=== PATIENT | female | born 1955 | race Caucasian/White ===

== ENCOUNTER → 2017-02-22 | Outpatient (CLI) | payer MEDICARE, MEDICAID ==
[2017-02-22 13:26] LABS: ASPARTATE AMINO TRANSFERASE 27 U/L (15-37); BLOOD UREA NITROGEN 8 mg/dL (7-18)
== END | disposition home or self-care (01) ==
LOC: CFH 08:30
PROVIDERS: ATTEND Internal Medicine Pulmonary Disease
DX: J98.11 Atelectasis (principal); E11.21 Type 2 diabetes mellitus with diabetic nephropathy; E78.2 Mixed hyperlipidemia
CPT/HCPCS: 36415; 71250; 80053; 80061; 82565

== ENCOUNTER → 2017-08-12 | Outpatient (CLI) | payer MEDICARE, MEDICAID ==
[2017-08-12 12:52] LABS: ASPARTATE AMINO TRANSFERASE 28 U/L (15-37); BLOOD UREA NITROGEN 6 mg/dL (7-18)
== END | disposition home or self-care (01) ==
LOC: LAB 10:04
PROVIDERS: ATTEND Internal Medicine Cardiovascular Disease
DX: I12.9 Hypertensive chronic kidney disease with stage 1 through stage 4 chronic kidney disease, or unspecified chronic kidney disease (principal); E11.21 Type 2 diabetes mellitus with diabetic nephropathy; I42.9 Cardiomyopathy, unspecified
CPT/HCPCS: 36415; 80053; 80061

== ENCOUNTER → 2017-10-04 | Outpatient (CLI) | payer MEDICARE, MEDICAID | END | disposition home or self-care (01) | LOC: CVU 08:09 | PROVIDERS: ATTEND Internal Medicine | DX: E11.51 Type 2 diabetes mellitus with diabetic peripheral angiopathy without gangrene (principal); E78.2 Mixed hyperlipidemia; M79.604 Pain in right leg; Z87.891 Personal history of nicotine dependence; Z85.828 Personal history of other malignant neoplasm of skin | CPT/HCPCS: 93922 ==

== ENCOUNTER 2019-04-18 14:45 | Day surgery (SDC) | payer MEDICAID, MEDICARE ==
[~2019-04-18] VITALS: Ht 154.9 cm; Wt 93.5 kg
[2019-04-18 15:12] VITALS: BP 114/77
== END 2019-04-18 23:29 | disposition hospice, home (50) ==
LOC: OR 14:45 → 4NOR 19:55 → OR 23:29
PROVIDERS: ATTEND Plastic Surgery
DX: C44.311 Basal cell carcinoma of skin of nose (principal); I11.0 Hypertensive heart disease with heart failure; I50.9 Heart failure, unspecified; J44.9 Chronic obstructive pulmonary disease, unspecified; E11.9 Type 2 diabetes mellitus without complications; K21.9 Gastro-esophageal reflux disease without esophagitis; Z79.84 Long term (current) use of oral hypoglycemic drugs
CPT/HCPCS: 15004; 15260; 36415; 80053; 93005; 94640; J0171; J0330; J0690; J1100; J2250; J2370; J2405; J2704; J2710; J3010; J3490; J7120; G0378

== ENCOUNTER 2020-04-03 12:12 | Inpatient (IN) | payer MEDICARE, MEDICAID ==
[~2020-04-03] VITALS: Ht 154.9 cm; Wt 96.1 kg
[~2020-04-03 12:12] MED LIST: COREG PO; LOVASTATIN PO; METFORMIN PO; OMEPRAZOLE PO; VITAMIN D PO; ZETIA PO; [UNRECOGNIZED DRUG - OTHER] PO
--- NOTE | 2020-04-03 12:49 | NUR ---
Assumed care patient. C/O SOB and cough x several days. Hx COPD. Scattered rhonchi thoughout. Bilateral periorbital edema. Placed on NIBP, pulse ox and front desk monitor. IV started and labs drawn. Will continue to monitor.
[2020-04-03 12:52] LABS: BASOPHILS # (AUTO) 0.01 x10^3/uL (0-0.1); BASOPHILS % (AUTO) 0 % (0-1); EOSINOPHILS % (AUTO) 0 % (1-7); LYMPHOCYTES # (AUTO) 1.35 x10^3/uL (1-3.4); LYMPHOCYTES % (AUTO) 12 % (22-44); MD NO; MEAN CORPUSCULAR HGB CONC 32.7 g/dL (32.4-35.8); MEAN PLATELET VOLUME 7.6 fL (7.4-10.4); MONOCYTES # (AUTO) 0.21 x10^3/uL (0.2-0.8); MONOCYTES % (AUTO) 2 % (2-9); NEUTROPHILS # (AUTO) 9.49 x10^3/uL (1.8-6.8); NEUTROPHILS % (AUTO) 86 % (42-75); PLATELET COUNT 249 x10^3/uL (130-400); RED BLOOD COUNT 4.72 x10^6/uL (3.82-5.3); RED CELL DISTRIBUTION WIDTH 16.7 % (9.6-15.2)
[2020-04-03 13:02] LABS: ALBUMIN 3.2 g/dL (3.4-5.0); ANION GAP 5 mmol/L (5-15); CALCIUM 8.1 mg/dL (8.5-10.1); CHLORIDE 107 mmol/L (98-107)
[2020-04-03 13:08] LABS: ALANINE AMINOTRANSFERASE 30 U/L (12-78); ALKALINE PHOSPHATASE 84 U/L (45-117); BILIRUBIN,TOTAL 0.7 mg/dL (0.2-1.0); CREATININE 1.45 mg/dL (0.55-1.02); TOTAL PROTEIN 7.1 g/dL (6.4-8.2); TROPONIN I 0.042 ng/mL (0.000-0.045)
[2020-04-03] MEDS ORDERED: OMEP-110 PO (13:26)
[2020-04-03] MEDS ORDERED: CHOL10003 PO (13:26)
[2020-04-03] MEDS ORDERED: METF500T17 PO (13:26)
[2020-04-03] MEDS ORDERED: EZET10TA70 PO (13:26)
[2020-04-03] MEDS ORDERED: LOVA40TA2 PO (13:26)
[2020-04-03] MEDS ORDERED: CARV25TA12 PO (13:26)
[2020-04-03] MEDS ORDERED: SPIR25TA5 PO (13:31)
--- NOTE | 2020-04-03 13:34 | NUR ---
Resting in gurney. No needs. Family member at bedside. VSS.
[2020-04-03] MEDS ORDERED: FUROSEMIDE 40 MG/4 ML IV ONE (14:30)
--- NOTE | 2020-04-03 14:43 | NUR ---
Report received from GAUTAM Cruz. Plan of care discussed
[2020-04-03] MEDS ORDERED: SODIUM CHLORIDE FLUSH 10ML SYR IVF PRN (15:00)
[2020-04-03] MEDS ORDERED: FUROSEMIDE 40 MG/4 ML ONE (15:09)
--- NOTE | 2020-04-03 15:25 | NUR ---
Patient medicated per emar, tolerated well
--- NOTE | 2020-04-03 15:49 | NUR ---
Attempted to call report x1
--- NOTE | 2020-04-03 15:56 | NUR ---
Report given to GAUTAM Barillas. Plan of care discussed
[2020-04-03 16:52] VITALS: BP 115/83
[2020-04-03] MEDS ORDERED: AMLO5TAB10 PO (17:07)
[2020-04-03] MEDS ORDERED: SITA100T PO (17:07)
[2020-04-03] MEDS ORDERED: ASPI-515 PO (17:07)
[2020-04-03] MEDS ORDERED: POTA10TA12 PO (17:15)
[2020-04-03] MEDS ORDERED: INSULIN LISPRO 100 UNITS/ML, PEN SQ-INSULIN SCH (18:00)
[2020-04-03] MEDS ORDERED: MELATONIN 5 MG TABLET PO PRN (18:00)
[2020-04-03] MEDS ORDERED: ENOXAPARIN 40 MG/0.4 ML SQ SCH (18:00)
[2020-04-03] MEDS ORDERED: BISACODYL 10 MG SUPP PR PRN (18:00)
[2020-04-03] MEDS ORDERED: NICOTINE 14MG/24 HR PATCH.TD24 TD SCH (18:00)
[2020-04-03] MEDS ORDERED: hydrALAzine 20 MG/ML, 1ML IVPush PRN (18:00)
[2020-04-03] MEDS ORDERED: ONDANSETRON ODT 4 MG PO PRN (18:00)
[2020-04-03] MEDS ORDERED: POLYETHYLENE GLYCOL 17 GM PACKET PO PRN (18:00)
[2020-04-03] MEDS ORDERED: PHARMACY MAY ADJ FOR RENAL FX MC PRN (18:00)
[2020-04-03] MEDS ORDERED: ACETAMINOPHEN 325 MG TABLET PO PRN (18:00)
[2020-04-03] MEDS ORDERED: ONDANSETRON 2MG/ML, 2ML IVPush PRN (18:00)
[2020-04-03] MEDS ORDERED: NICOTINE 14MG/24 HR PATCH.TD24 ONE (18:21)
[2020-04-03] MEDS ORDERED: POTASSIUM CHLORIDE 20 MEQ TAB.ER.PRT ONE (18:33)
[2020-04-03] MEDS: POTASSIUM CHLORIDE 20 MEQ TAB.ER.PRT PO SCH (18:34)
[2020-04-03] MEDS: FUROSEMIDE 40 MG/4 ML IV SCH (18:34)
[2020-04-03 18:54] LABS: TROPONIN I 0.058 ng/mL (0.000-0.045)
[2020-04-03 19:39] VITALS: BP 143/93
[2020-04-03] MEDS: CEFTRIAXONE 2 GM in SODIUM CHLORIDE 0.9% 50 ML IVPB SCH (20:11)
[2020-04-03 20:15] LABS: MICROSCOPIC NOT IND
[2020-04-03] MEDS: ENOXAPARIN 40 MG/0.4 ML SQ SCH (21:33)
[2020-04-03] MEDS: NICOTINE 14MG/24 HR PATCH.TD24 TD SCH (21:33)
[2020-04-03] MEDS: SODIUM CHLORIDE FLUSH 10ML SYR IVF SCH (22:00)
[2020-04-03] MEDS: ALBUTEROL-IPRATROPIUM MDI INH INH SCH (22:00)
[2020-04-03] MEDS: INSULIN LISPRO 100 UNITS/ML, PEN SQ-INSULIN SCH (22:01)
[2020-04-04 00:57] LABS: TROPONIN I 0.054 ng/mL (0.000-0.045)
[2020-04-04 01:55] VITALS: BP 130/88
[2020-04-04] MEDS: ALBUTEROL-IPRATROPIUM MDI INH INH SCH ×4 (06:01→20:50)
[2020-04-04 06:42] LABS: BASOPHILS # (AUTO) 0.06 x10^3/uL (0-0.1); BASOPHILS % (AUTO) 1 % (0-1); EOSINOPHILS # (AUTO) 0.04 x10^3/uL (0-0.4); EOSINOPHILS % (AUTO) 0 % (1-7); LYMPHOCYTES # (AUTO) 1.99 x10^3/uL (1-3.4); LYMPHOCYTES % (AUTO) 22 % (22-44); MD NO; MEAN CORPUSCULAR HEMOGLOBIN 32.5 pg (27.0-34.8); MEAN CORPUSCULAR HGB CONC 31.8 g/dL (32.4-35.8); MEAN PLATELET VOLUME 7.6 fL (7.4-10.4); MONOCYTES # (AUTO) 0.41 x10^3/uL (0.2-0.8); MONOCYTES % (AUTO) 5 % (2-9); NEUTROPHILS # (AUTO) 6.49 x10^3/uL (1.8-6.8); NEUTROPHILS % (AUTO) 72 % (42-75); PLATELET COUNT 205 x10^3/uL (130-400); RED BLOOD COUNT 4.41 x10^6/uL (3.82-5.3); RED CELL DISTRIBUTION WIDTH 16.8 % (9.6-15.2)
[2020-04-04 06:53] LABS: CALCIUM 8.6 mg/dL (8.5-10.1); CHLORIDE 103 mmol/L (98-107)
[2020-04-04] MEDS: INSULIN LISPRO 100 UNITS/ML, PEN SQ-INSULIN SCH ×4 (07:00→21:06)
[2020-04-04 07:07] LABS: ALANINE AMINOTRANSFERASE 25 U/L (12-78); ALBUMIN 2.9 g/dL (3.4-5.0); ALKALINE PHOSPHATASE 71 U/L (45-117); ANION GAP 6 mmol/L (5-15); BILIRUBIN,TOTAL 0.4 mg/dL (0.2-1.0); TOTAL PROTEIN 6.6 g/dL (6.4-8.2)
[2020-04-04 07:11] VITALS: BP 118/78
[2020-04-04] MEDS: AZITHROMYCIN 500 MG TABLET PO SCH (08:28)
[2020-04-04] MEDS: POTASSIUM CHLORIDE 20 MEQ TAB.ER.PRT PO SCH ×4 (08:28→20:50)
[2020-04-04] MEDS: FUROSEMIDE 40 MG/4 ML IV SCH ×2 (08:28→16:21)
[2020-04-04] MEDS: SODIUM CHLORIDE FLUSH 10ML SYR IVF SCH ×2 (08:30→20:51)
[2020-04-04] MEDS ORDERED: MAGNESIUM SULFATE PMX 2GM/50ML 50 ML IV ONE (10:00)
[2020-04-04 12:30] VITALS: BP 110/73
[2020-04-04] MEDS ORDERED: OMNIPAQUE 350 MG/ML, 100ML BOTTLE ONE (15:46)
[2020-04-04] MEDS: CEFTRIAXONE 2 GM in SODIUM CHLORIDE 0.9% 50 ML IVPB SCH (18:00)
[2020-04-04 19:22] VITALS: BP 114/71
[2020-04-04] MEDS: ENOXAPARIN 40 MG/0.4 ML SQ SCH (20:51)
[2020-04-04] MEDS: NICOTINE 14MG/24 HR PATCH.TD24 TD SCH (20:51)
[2020-04-05 02:00] VITALS: BP 120/71
[2020-04-05] MEDS: ALBUTEROL-IPRATROPIUM MDI INH INH SCH ×4 (05:41→20:25)
[2020-04-05 06:31] LABS: ANION GAP 4 mmol/L (5-15); CALCIUM 9.4 mg/dL (8.5-10.1); CHLORIDE 103 mmol/L (98-107)
[2020-04-05 06:35] VITALS: BP 117/81
[2020-04-05] MEDS: INSULIN LISPRO 100 UNITS/ML, PEN SQ-INSULIN SCH ×4 (07:00→20:26)
[2020-04-05] MEDS: SODIUM CHLORIDE FLUSH 10ML SYR IVF SCH ×2 (08:22→20:26)
[2020-04-05] MEDS: FUROSEMIDE 40 MG/4 ML IV SCH ×2 (08:22→16:59)
[2020-04-05] MEDS ORDERED: REGADENOSON 0.4 MG/5 ML SYRINGE ONE (08:39)
[2020-04-05] MEDS: AZITHROMYCIN 500 MG TABLET PO SCH (11:38)
[2020-04-05] MEDS: POTASSIUM CHLORIDE 20 MEQ TAB.ER.PRT PO SCH ×3 (11:38→20:25)
[2020-04-05 12:57] VITALS: BP 112/80
[2020-04-05] MEDS: CEFTRIAXONE 2 GM in SODIUM CHLORIDE 0.9% 50 ML IVPB SCH (18:25)
[2020-04-05] MEDS: ENOXAPARIN 40 MG/0.4 ML SQ SCH (20:25)
[2020-04-05] MEDS: NICOTINE 14MG/24 HR PATCH.TD24 TD SCH (20:25)
[2020-04-05 20:38] VITALS: BP 101/68
[2020-04-06 01:10] VITALS: BP 135/81
[2020-04-06 05:36] LABS: ANION GAP 6 mmol/L (5-15); CHLORIDE 99 mmol/L (98-107); CREATININE 1.05 mg/dL (0.55-1.02)
[2020-04-06] MEDS: ALBUTEROL-IPRATROPIUM MDI INH INH SCH ×4 (06:31→21:06)
[2020-04-06 06:33] VITALS: BP 122/81
[2020-04-06] MEDS: INSULIN LISPRO 100 UNITS/ML, PEN SQ-INSULIN SCH ×4 (07:00→21:12)
[2020-04-06] MEDS: AZITHROMYCIN 500 MG TABLET PO SCH (10:50)
[2020-04-06] MEDS: FUROSEMIDE 40 MG/4 ML IV SCH ×2 (10:50→21:07)
[2020-04-06] MEDS: POTASSIUM CHLORIDE 20 MEQ TAB.ER.PRT PO SCH ×3 (10:50→21:06)
[2020-04-06] MEDS: SODIUM CHLORIDE FLUSH 10ML SYR IVF SCH ×2 (10:50→21:07)
[2020-04-06 12:59] VITALS: BP 138/86
[2020-04-06] MEDS: CEFTRIAXONE 2 GM in SODIUM CHLORIDE 0.9% 50 ML IVPB SCH (18:39)
[2020-04-06] MEDS: ENOXAPARIN 40 MG/0.4 ML SQ SCH (21:11)
[2020-04-06] MEDS: NICOTINE 14MG/24 HR PATCH.TD24 TD SCH (21:11)
[2020-04-06 21:12] VITALS: BP 115/76
[2020-04-07 02:37] VITALS: BP 117/80
[2020-04-07] MEDS: ALBUTEROL-IPRATROPIUM MDI INH INH SCH ×2 (05:07→12:29)
[2020-04-07 05:47] LABS: BASOPHILS # (AUTO) 0.02 x10^3/uL (0-0.1); BASOPHILS % (AUTO) 0 % (0-1); EOSINOPHILS # (AUTO) 0.16 x10^3/uL (0-0.4); EOSINOPHILS % (AUTO) 3 % (1-7); LYMPHOCYTES # (AUTO) 1.65 x10^3/uL (1-3.4); LYMPHOCYTES % (AUTO) 25 % (22-44); MD NO; MEAN CORPUSCULAR HEMOGLOBIN 32.1 pg (27.0-34.8); MEAN CORPUSCULAR HGB CONC 31.8 g/dL (32.4-35.8); MEAN PLATELET VOLUME 7.7 fL (7.4-10.4); MONOCYTES # (AUTO) 0.43 x10^3/uL (0.2-0.8); MONOCYTES % (AUTO) 7 % (2-9); NEUTROPHILS # (AUTO) 4.35 x10^3/uL (1.8-6.8); NEUTROPHILS % (AUTO) 66 % (42-75); PLATELET COUNT 191 x10^3/uL (130-400); RED BLOOD COUNT 4.66 x10^6/uL (3.82-5.3); RED CELL DISTRIBUTION WIDTH 16.9 % (9.6-15.2)
[2020-04-07 05:49] LABS: ANION GAP 6 mmol/L (5-15); CALCIUM 9.6 mg/dL (8.5-10.1); CHLORIDE 99 mmol/L (98-107)
[2020-04-07 05:50] LABS: CREATININE 1.04 mg/dL (0.55-1.02)
[2020-04-07 06:36] VITALS: BP 102/67
[2020-04-07] MEDS: INSULIN LISPRO 100 UNITS/ML, PEN SQ-INSULIN SCH ×2 (07:39→12:29)
[2020-04-07] MEDS: POTASSIUM CHLORIDE 20 MEQ TAB.ER.PRT PO SCH (08:22)
[2020-04-07] MEDS: SODIUM CHLORIDE FLUSH 10ML SYR IVF SCH (08:22)
[2020-04-07] MEDS: AZITHROMYCIN 500 MG TABLET PO SCH (08:22)
[2020-04-07] MEDS: FUROSEMIDE 40 MG/4 ML IV SCH (08:22)
[2020-04-07] MEDS ORDERED: FUROSEMIDE 40 MG TABLET PO ONE (10:00)
[2020-04-07 12:18] VITALS: BP 126/79
[2020-04-07] MEDS ORDERED: Albuterol-Ipratropium Mdi INH (12:33)
[2020-04-07] MEDS ORDERED: FURO40TA6 PO (12:34)
== END 2020-04-07 13:40 | disposition home or self-care (01) | DRG 291 ==
LOC: ED 14:14 → SUATTDRO 16:42 → EDIP 16:44 → 5SO 16:47 → DCLOUNGE 04-07 13:28
PROVIDERS: ADMIT Internal Medicine; ATTEND Hospitalist
DX: I11.0 Hypertensive heart disease with heart failure (principal); N17.0 Acute kidney failure with tubular necrosis; I50.23 Acute on chronic systolic (congestive) heart failure; J44.9 Chronic obstructive pulmonary disease, unspecified; R09.89 Other specified symptoms and signs involving the circulatory and respiratory systems; E78.5 Hyperlipidemia, unspecified; K52.9 Noninfective gastroenteritis and colitis, unspecified; E11.9 Type 2 diabetes mellitus without complications; F17.210 Nicotine dependence, cigarettes, uncomplicated; K21.9 Gastro-esophageal reflux disease without esophagitis; Z79.899 Other long term (current) drug therapy; Z79.4 Long term (current) use of insulin; Z79.82 Long term (current) use of aspirin; Z85.828 Personal history of other malignant neoplasm of skin; Z91.11 Patient's noncompliance with dietary regimen; Z91.19 Patient's noncompliance with other medical treatment and regimen; Z99.81 Dependence on supplemental oxygen; Z79.84 Long term (current) use of oral hypoglycemic drugs; Z90.49 Acquired absence of other specified parts of digestive tract
CPT/HCPCS: 36415; 71045; 71275; 78452; 80048; 80053; 81003; 82962; 83036; 83615; 83735; 83880; 84443; 84484; 85025; 85379; 86738; 87040; 87449; 93005; 93017; 96374; 99285; C8929; G0378; J0696; J1650; J1940; J2785; Q9957; Q9967; A9502; J1815; J3475

== ENCOUNTER 2020-09-13 16:45 | Emergency (ER) | payer MEDICAID, MEDICARE ==
[~2020-09-13] VITALS: Ht 154.9 cm; Wt 110.0 kg
[~2020-09-13 16:45] MED LIST changes: +AMLO-210 PO; +ASPI-515 PO; +Albuterol-Ipratropium Mdi INH; +CARV25TA12 PO; +CHOL10003 PO; +EZET10TA70 PO; +FURO40TA6 PO; +LOVA40TA2 PO; +METF500T17 PO; +OMEP-110 PO; +POTA10TA12 PO; +SITA100T PO; +SPIR25TA5 PO
--- NOTE | 2020-09-13 17:49 | NUR ---
Pt to er 37, on monitor spo2 and NBP. Pt complains of shortness of breath x 3 weeks.
[2020-09-13] MEDS ORDERED: SODIUM CHLORIDE FLUSH 10ML SYR IVF ONE (18:00)
[2020-09-13 18:17] LABS: BASOPHILS % (AUTO) 1 % (0-1); EOSINOPHILS % (AUTO) 1 % (1-7); LYMPHOCYTES % (AUTO) 13 % (22-44); MEAN CORPUSCULAR HEMOGLOBIN 31.3 pg (27.0-34.8); MEAN CORPUSCULAR HGB CONC 31.4 g/dL (32.4-35.8); MONOCYTES % (AUTO) 6 % (2-9); NEUTROPHILS % (AUTO) 79 % (42-75); PLATELET COUNT 227 x10^3/uL (130-400); RED BLOOD COUNT 4.61 x10^6/uL (3.82-5.3); RED CELL DISTRIBUTION WIDTH 19.2 % (9.6-15.2)
[2020-09-13 18:31] LABS: ALBUMIN 3.1 g/dL (3.4-5.0); ANION GAP 1 mmol/L (5-15); CALCIUM 8.6 mg/dL (8.5-10.1); CHLORIDE 108 mmol/L (98-107); CREATININE 1.62 mg/dL (0.55-1.02)
[2020-09-13 18:34] LABS: TROPONIN I 0.039 ng/mL (0.000-0.045)
[2020-09-13 18:39] LABS: MD MORPH REVIEW ONLY
[2020-09-13 18:40] LABS: ANISOCYTOSIS 1+; HYPOCHROMIA 1+
[2020-09-13 18:41] LABS: <PLATELET ESTIMATE> ADEQUATE; LARGE PLATELETS 1+
--- NOTE | 2020-09-13 19:04 | NUR ---
BEDSIDE REPORT RECEIVED FROM ELAINE FLOREZ
--- NOTE | 2020-09-13 20:00 | NUR ---
PT UP TO BATHROOM WITH THIS RN WHILE USING 2L O2 VIA NASAL CANNULA. PT TOLERATED WELL AND ABLE TO WALK WITH STEADY GAIT. "I FEEL FINE, I COULD GO HOME". PT RETURNED TO ROOM AND O2 SAT NOTED AT 88% ON 2L. SUPPLEMENTAL O2 INCREASED TO 3L VIA NASAL CANNULA O2 AT 96%. ERP NOTIFIED. PT SITTING UPRIGHT ON GURNEY, NAD. PT DENIES ANY NEEDS AT THIS TIME. CALL LIGHT AND BELONGINGS WITHIN REACH.
--- NOTE | 2020-09-13 21:00 | NUR ---
ERP AT BEDSIDE
[2020-09-13 21:02] VITALS: BP 114/63
--- NOTE | 2020-09-13 21:03 | NUR ---
PT SITTING UPRIGHT ON GURNEY, NAD, VSS. PT DENIES ANY NEEDS AT THIS TIME. CALL LIGHT AND PERSONAL BELONGINGS WITHIN REACH.
--- NOTE | 2020-09-13 21:15 | NUR ---
Patient given discharge instructions and they have confirmed that they understand the instructions. Patient ambulatory with steady gait.
== END 2020-09-13 21:35 | disposition home or self-care (01) ==
LOC: ED 19:07
DX: I50.9 Heart failure, unspecified (principal); R06.00 Dyspnea, unspecified; R07.89 Other chest pain; J44.9 Chronic obstructive pulmonary disease, unspecified; I49.1 Atrial premature depolarization; I44.7 Left bundle-branch block, unspecified; Z87.891 Personal history of nicotine dependence
CPT/HCPCS: 36415; 71045; 80048; 82040; 83880; 84484; 85025; 93005; 99285

== ENCOUNTER → 2021-06-08 | Outpatient (CLI) | payer MEDICARE, MEDICAID ==
[~2021-06-08] MED LIST changes: -ASPI-515 PO; +ASPI-963 PO; +POTA-138 PO; -POTA10TA12 PO
== END | disposition home or self-care (01) ==
LOC: CFH 14:00
DX: Z12.31 Encounter for screening mammogram for malignant neoplasm of breast (principal); Z12.2 Encounter for screening for malignant neoplasm of respiratory organs; Z13.820 Encounter for screening for osteoporosis; M85.89 Other specified disorders of bone density and structure, multiple sites; N95.9 Unspecified menopausal and perimenopausal disorder; F17.210 Nicotine dependence, cigarettes, uncomplicated
CPT/HCPCS: 71271; 77063; 77067; 77080